=== PATIENT | female | born 1990 | race Caucasian/White ===

== ENCOUNTER 2020-08-07 05:10 | Inpatient (IN) | payer SELFPAY ==
[2016-08-06 10:22] VITALS: BMI 23.1
[2020-08-07] VITALS (16 sets, daily range): BP systolic 107–135; BP diastolic 58–90; PULSE 75–107; RESP 14–18; TEMP 36.1–36.8; O2SAT 95–100; BMI 23.4
--- NOTE | 2020-08-07 | PLAC_PTH ---
PATIENT: CORTNEY FOREMAN LOC: [facility] U#:[id number] AGE/SX: 30/F ROOM: WP006 RE08/07/[address]: Dr. Abena Deras DO : 1990 BED: 1 DIS: 08/08/2020 SPEC #: [id number] RECD: 08/07/20 14:44 STATUS: TANYA RELexi #: [id number] SATHYA: 08/07/20 00:[address]: Abena Deras DEPT: SURGICAL PATHOLOGY RECD BY: Puneet Mariscal ENTERED: 08/08/20 12:27 SP TYPE: PLACENTA OTHR DR: Dominique Chaudhry PA-C Tissues: Placenta, NOS Procedures: Surgery Specimen Level V HEADER OPERATION: Repeat section PRE-OP DIAGNOSIS: Labor TISSUE SUBMITTED: Placenta MICROSCOPIC DIAGNOSIS [place] placenta (402 gm): Umbilical cord - trivascular with no inflammation. Placental membranes - no pathologic change. Placental disc - John Donaldo change and mild intravillous congestion. AM:jenifer 08/09/2020 MICROSCOPIC DESCRIPTION Slides are reviewed. GROSS DESCRIPTION SPECIMEN: PLACENTA / CLINICAL INFORMATION: A. Weight: 1.915 kg B. Gestational Age: 37 weeks C. Sex: Female PLACENTAL WEIGHT (POST FIXATION): 402 gm PLACENTAL DIMENSIONS: 16 x 13 x 3 cm PLACENTAL SHAPE: Usual ovoid PLACENTAL WEIGHT FOR GESTATIONAL AGE: Within 10-99th percentile MEMBRANES - Present A. Insertion: Marginal B. Site of rupture from edge: 3 cm from edge of placental disc C. Color of membrane: Bearden-santana D. Abnormalities: None UMBILICAL CORD - Present A. Color: Bearden-santana B. Insertion: Eccentric C. Length: 15 cm D. Diameter: 1.2 cm E. Number of vessels: Three F. Abnormalities: None PLACENTAL DISC - Present A. Color of surface: Bearden-santana B. surface abnormalities: None C. Maternal cotyledons: Intact with minimal tears D. Attached retro placental clot: No clot E. Cut surface: Dark red and spongy F. Lesions: None G. Separate clot: 4 x 4 x 1 cm SECTIONS SUBMITTED: 1. Umbilical cord ( end notched) 2. Umbilical cord, placental end 3. Membrane roll 4. Placental disc, and maternal surfaces 5. Placental disc, and maternal surfaces 6. Placental disc, and maternal surfaces AM:jenifer 08/08/20 TC:5 CPT: 09255
[2020-08-07] MEDS: Lactated Ringers 1,000 ML 999 ML IV (05:40)
[2020-08-07 06:10] LABS: Absolute Lymphocyte Count 1.17 X10^3/uL (0.83-4.51); Absolute Neutrophil Count 5.6 X10^3/uL (2.0-7.7); Basophil# 0.02 X10^3/uL; Basophil% 0.3 % (0-1); Eosinophil# 0.06 X10^3/uL; Eosinophils% 0.8 % (0-5); Hematocrit 38.3 % (37-47); Lymphocyte # 1.17 X10^3/ul (4.0); Mean Corp Hgb Conc 33.9 g/dL (32-36); Mean Corpuscular Hgb 30.6 pg (27.0-32.0); Mean Corpuscular Volume 90.1 fL (81-99); Mean Platelet Vol. 11.5 fl (6.2-12.0); Monocyte# 0.44 X10^3/uL; NRBC Flagged by Analyzer 0 % (0-5); Neutrophil % 76.5 % (47-70); Platelet Count 131 K/mm3 (150-450); RBC Distribution Width CV 12.9 % (11.6-14.6); RBC Distribution Width SD 42.3 fl (35.1-43.9); Red Blood Count 4.25 M/mm3 (4.2-5.4); White Blood Count 7.3 K/mm3 (4.4-11.0)
[2020-08-07] MEDS: Acetaminophen 500 MG Tablet 1000 MG PO ×4 (06:26→23:59)
[2020-08-07 06:31] LABS: Bedside Glucose 106 mg/dL (70-110)
--- NOTE | 2020-08-07 07:17 | PCM.HP.OB ---
- Problem List (1) 37 weeks gestation of Status: Acute (2) History of section Status: Acute (3) IUGR (intrauterine growth restriction) Status: Acute (4) Gestational diabetes Status: Acute History Date of Admission: 08/07/20 Final ROSARIO: 08/22/20 Gestational age: 37 Weeks and 6 Days History of this : This is a 30 year-old, G 5, P 3, at 37 weeks gestational age admitted for a scheduled section. [facility] recommended delivery due to IUGR and poor interval growth. Medical History: Medical History (Last Updated 08/07/20 @ 07:[address] Abena Deras, DO) History of seizure Z87.898 Allergies No Known Allergies Allergy (Verified 08/06/16 10:30) Home Medications: Home Medications Vits [Prenatabs FA] 1 tablet PO DAILY 08/05/16 Naproxen [Naprosyn] 250 - 500 mg PO Q8H PRN PRN #30 tablet 08/08/16 Oxycodone HCl/Acetaminophen [Percocet 5-325] 2 tablet PO Q4H PRN PRN #30 tablet 08/08/16 Smoking Status: Never smoker Number of Fetus(es): 1 NST - FHR Rate Baby A FHR Category:: Category I History Past Pregnancies: Past Pregnancies Delivery Date Name GA/ Weeks Outcome Route Wt Sex Labor Length Anesthesia Delivery Location Provider FOB Labs: See [facility] record Expected Infant Delivery Method: Repeat Section Physical Exam Vitals: Vital Signs Temp Pulse Resp BP Pulse Ox 97.6 F L 107 H 16 135/90 H 100 08/07/20 05:40 08/07/20 05:40 08/07/20 05:40 08/07/20 05:40 08/07/20 05:40 Assessment/Plan All Active Problems 37 weeks gestation of (Acute) History of section (Acute) IUGR (intrauterine growth restriction) (Acute) Gestational diabetes (Acute) This is a 30 year-old, G 5, P 3, at 37 weeks gestational age admitted for a scheduled repeat section. - Routine pre op care - Delivery recommended by [facility] - Covid test ordered but not completed - Consent signed. Discussed r/b/a to section
[2020-08-07] MEDS: Sodium Citrate/Citric Acid 30 ML UDC PO (07:18)
[2020-08-07] MEDS: Lactated Ringers 1,000 ML 150 ML IV (07:18)
[2020-08-07] MEDS: Cefazolin 2 GM in 0.9% Normal Saline 100 ML IV (07:24)
--- NOTE | 2020-08-07 09:09 | OP.PCM_ITS ---
Problem List (1) 37 weeks gestation of Status: Acute (2) History of section Status: Acute (3) IUGR (intrauterine growth restriction) Status: Acute (4) Gestational diabetes Status: Acute Report of Operation Date of Procedure: 08/07/20 Pre-Operative Diagnosis: 37 week gestation, IUGR with poor interval growth, A1GDM, history prior sections Post-Operative Diagnosis: As above Surgery/Procedure Performed:: RLTCS via pfannenstiel incision Description of Surgical Findings:: Normal appearing uterus, bilateral tubes, bilateral ovaries. No uterine window noted, but the lower uterine segment was noted to be generally thin. Moderate adhesive disease. Dense fascia and the fascia was significantly adhered to the rectus muscles. The rectus muscles were significantly adhered in the midline. No peritoneal adhesions to the uterus. Minimal bladder adhesions to the uterus. The uterus was free of adhesions and able to be exteriorized from the abdomen. director educational radio: Kalani Casey assisted with the surgery and delivery of the baby. Once the baby was delivered she left the OR. Type of Anesthesia:: Spinal Special Medications: None Specimen's removed: Placenta Drains: Hernandez Estimated Blood Loss (mL): 300 Fluids Replaced: See anesthesia record Description of Procedure: The patient was taken to the OR where spinal anesthesia was adequate. She was prepped and draped in dorsal position with a leftward tilt. A Pfannenstiel skin incision was made using the scalpel. The subcutaneous tissue was dense. The incision was carried down to the underlying layer of fascia. The fascia was incised in the midline and extended laterally using Rodriguez scissors. The fascia was dissected off the rectus muscles cephalad and caudad. The fascia was significantly adhered to the rectus, and the dissection was performed with sharp dissection. The rectus muscles were adhered in the midline. Using a hemostat and scissors, the rectus muscles were carefully in the midline. The peritoneum was entered sharply with good visualization of the bladder, and the incision was extended bluntly. There were minimal bladder adhesions. A bladder flap was created. The lower uterine segment was generally thin, but no window noted. A transverse incision was made along the lower uterine segment. Clear fluid was noted. The 's head was flexed and gently brought to the hysterotomy. The infant was delivered through the hysterotomy without any force or delay. The cord was clamped and cut after a slight delay, and the infant was handed off to the nursery staff. The placenta was removed and sent to pathology. The uterus was exteriorized. The uterus was cleared of all clot and debris. The hysterotomy was closed first with Vicryl in a running locked fashion. A second imbricating layer was performed with Vicryl. Several addition figure of eight stitches were placed for hemostasis. The uterus was placed back into the abdomen. The hysterotomy and bladder flap was generally oozy. Hemostasis was noted with Bovie, Hari, and pressure. Started to close the peritoneum with Vicryl, but the peritoneum and pre-peritoneal fat continued to bleed. The suture was removed and the peritoneum was not closed. Several figure of eight stitches were placed on the peritoneum and the Bovie was used for hemostasis. The fascia was closed with Vicryl. The subcutaneous space was made hemostatic with Bovie and reapproximated with vicryl. The skin was closed in a subcuticular fashion. Steri strips and a dressing were placed. Instrument, sponge and needle counts were correct and the patient was taken to the recovery room is good condition. Grafts/Implants Used: None - Complications None - Admit VTE Documentation VTE Present on Admission: No VTE Mechan Device Prophylaxis: SCD's VTE Pharm Prophylaxis ordered?: Yes Delivery Classification: Scheduled Amniotic Fluid Description: Clear Placenta Disposition: [facility] Drain: Hernandez to straight drain Cord Entanglement: None Infant Gender: Female Delayed cord clamping: Yes Antibiotic Given: Ancef 2 grams IV x1 Pt instructed on risks of surgery: Bleeding, Infection, Need for Future C- Sections, Injury to surrounding structure(s) including bowel and bladder
[2020-08-07] MEDS: Oxytocin 30 units/NS 500 ml 30 UNITS/500 ML IV.SOLN 167 UNITS IV (09:10)
[2020-08-07 10:35] LABS: Bedside Glucose 81 mg/dL (70-110)
[2020-08-07 11:33] LABS: ALB/GLOB Ratio 0.8 RATIO (0.9-2.4); AST(SGOT) 17 U/L (15-37); Alanine Aminotransfer ALT/SGPT 23 U/L (13-56); Albumin, Serum 2.6 g/dL (3.2-5.0); Alkaline Phosphatase 115 U/L (45-117); Anion Gap 4 (5-15); BUN 7 mg/dL (7-18); BUN/Creat Ratio 12.7 RATIO (10-20); Calcium,Total 8.6 mg/dL (8.5-10.1); Chloride 109 mmol/L (98-107); Creatinine, Serum 0.55 mg/dL (0.55-1.02); EST Glomerular Filtration Rate 135 mL/min (>60); Est Glom Filt Rate - Afr Amer 164 mL/min (>60); Estimated Creatinine Clearance 132.14 ml/min; Globulin 3.4 g/dL (2.2-4.2); Glucose 89 mg/dL (74-106); Potassium 4.8 mmol/L (3.5-5.1); Sodium Level 139 mmol/L (136-145)
[2020-08-07] MEDS: Senna/Docusate Sodium 1 Tablet PO (12:14)
[2020-08-07] MEDS: 0.9% Saline Lock 10 ML Syringe IV ×3 (12:18→20:14)
[2020-08-07] MEDS: Ketorolac 30 MG/ML Syringe IV ×2 (13:55→20:13)
[2020-08-07] MEDS: Enoxaparin 40 MG/0.4 ML Syringe SC (20:13)
[2020-08-08] MEDS: 0.9% Saline Lock 10 ML Syringe IV ×2 (02:01→07:54)
[2020-08-08] MEDS: Ketorolac 30 MG/ML Syringe IV ×2 (02:01→07:53)
[2020-08-08 05:02] VITALS: BP 123/78; PULSE 87; RESP 16; TEMP 36.6
[2020-08-08] MEDS: Acetaminophen 500 MG Tablet 1000 MG PO ×2 (06:31→12:20)
[2020-08-08 06:53] LABS: Hematocrit 34.5 % (37-47); Hemoglobin 11.7 g/dL (12.0-15.0); Mean Corp Hgb Conc 33.9 g/dL (32-36); Mean Corpuscular Hgb 30.9 pg (27.0-32.0); Mean Platelet Vol. 11.2 fl (6.2-12.0); Platelet Count 136 K/mm3 (150-450); RBC Distribution Width CV 13.2 % (11.6-14.6); RBC Distribution Width SD 43.1 fl (35.1-43.9); Red Blood Count 3.79 M/mm3 (4.2-5.4); White Blood Count 9.4 K/mm3 (4.4-11.0)
[2020-08-08 06:55] LABS: Bedside Glucose 73 mg/dL (70-110)
[2020-08-08 07:48] VITALS: BP 118/81; PULSE 89; RESP 18; TEMP 36.4; O2SAT 97
--- NOTE | 2020-08-08 08:36 | PN.OBGYN_ITS ---
Patient Problems: Active and Suspected Problems (Last Updated 08/07/20 @ 07:[address] Abena Deras, DO) 37 weeks gestation of (Acute) History of section (Acute) IUGR (intrauterine growth restriction) (Acute) Gestational diabetes (Acute) Subjective: Patient seen at bedside. Feeling good. Denies any CP, SOB, or dizziness. Ambulating, voiding and passing flatus without difficulty. Breast feeding infant. Desires discharge home today. - Physical Exam Vitals/I&O's: Vital Signs Temp Pulse Resp BP Pulse Ox 97.6 F L 89 18 118/81 H 97 08/08/20 07:48 08/08/20 07:48 08/08/20 07:48 08/08/20 07:48 08/08/20 07:48 Oxygen Delivery Method Room Air Weight: 140 lb 12.8 oz Body Mass Index (BMI) 23.4 Intake and Output for Last 24 Hours 08/06/20 08/07/20 08/08/20 23:59 23:59 23:59 Intake Total 1925 / 1925 Output Total 2300 / 2300 Balance -375 / -375 General: Alert, Oriented x3 Lungs: Normal air movement Cardiovascular: Regular rate Abdomen: Soft, Passing Flatus Extremities: No Calf Tenderness Skin: No rashes Neurological: Cranial nerves II-XII grossly intact Psych/Mental Status: Normal Affect Microbiology Past 72 Hours 08/07/20 05:45 Mucosa - Nose SARS-CoV-2 Antigen (Rapid) - Final Laboratory Results 08/07/20 10:00: Sodium 139, Potassium 4.8, Chloride 109 H, Carbon Dioxide 26.0, Anion Gap 4 L, BUN 7, Creatinine 0.55, Estim Creat Clear Calc 132.14, Est GFR (MDRD) Af Amer 164, Est GFR (MDRD) Non-Af 135, BUN/Creatinine Ratio 12.7, Glucose 89, Calcium 8.6, Total Bilirubin 0.40, AST 17, ALT 23, Alkaline Phosphatase 115, Total Protein 6.0 L, Albumin 2.6 L, Globulin 3.4, Albumin/Globulin Ratio 0.8 L 08/07/20 10:18: POC Glucose 81 08/08/20 06:40: WBC 9.4, RBC 3.79 L, Hgb 11.7 L, Hct 34.5 L, MCV 91.0, MCH 30.9, MCHC 33.9, RDW Std Deviation 43.1, RDW Coeff of Sallie 13.2, Plt Count 136 L, MPV 11.2 08/08/20 06:50: POC Glucose 73 Current Medications Acetaminophen (Acetaminophen 500 Mg Tablet) 1,000 mg PO Q6 [facility] Last Admin: 08/08/20 06:31 Dose: 1,000 mg Documented by: Bisacodyl (Bisacodyl 10 Mg Suppository) 10 mg RECTAL UD PRN PRN Reason: If no BM Enoxaparin Sodium (Enoxaparin 40 Mg/0.4 Ml Syringe) 40 mg SC DAILY [facility] Last Admin: 08/07/20 20:13 Dose: 40 mg Documented by: Hydrocortisone (Hydrocortisone 2.5% Crm) 1 applic TOPICAL TID PRN PRN; Protocol PRN Reason: Discomfort Hydromorphone HCl (Hydromorphone 1 Mg/Ml Syringe) 0.5 - 1.5 mg IV Q3H PRN PRN PRN Reason: Pain Score 4-10 Stop: 08/08/20 09:22 Ibuprofen (Ibuprofen 600 Mg Tablet) 600 mg PO Q6H [facility] Methylergonovine Maleate (Methylergonovine 0.2 Mg/Ml Ampul) 0.2 mg IM X1 PRN PRN Reason: Uterine Atony Ondansetron HCl (Ondansetron 4 Mg/2 Ml Vial) 4 mg IV Q4H PRN PRN PRN Reason: Nausea Oxycodone HCl (Oxycodone 5 Mg Tablet) 5 - 10 mg PO Q4H PRN PRN PRN Reason: Pain Score 4-10 Prochlorperazine Edisylate (Prochlorperazine 10 Mg/2 Ml Vial) 10 mg IV Q6H PRN PRN PRN Reason: NAUSEA Senna/Docusate Sodium (Senna/Docusate Sodium 1 Tablet) 0 tablet PO DAILY [facility] Last Admin: 08/07/20 12:14 Dose: 2 tablet Documented by: Simethicone (Simethicone 80 Mg Tablet) 80 mg PO PCHS PRN PRN Reason: Indigestion/stomach pain Sodium Chloride (0.9% Saline Lock 10 Ml Syringe) 5 - 15 ml IV UD PRN PRN Reason: SALINE FLUSH Last Admin: 08/08/20 07:54 Dose: 10 ml Documented by: Medical Necessity - Tobacco Use Smoking Status: Never smoker Assessment/Plan All Active Problems (Last Updated 08/07/20 @ 07:[address] Abena Deras, DO) 37 weeks gestation of (Acute) History of section (Acute) IUGR (intrauterine growth restriction) (Acute) Gestational diabetes (Acute) POD #1 Repeat C/S Pain controlled with oral medications Breast feeding support Discharge home with follow up in office
--- NOTE | 2020-08-08 08:43 | DCINST_ITS ---
May resume sexual activity in: 6-8 weeks Weight Bearing Status: Weight bearing as tolerated Additional Instructions: If you experience any of the following, contact your healthcare provider. * Bleeding that soaks a pad every hour for 2 hours * Fever 100.4 or higher * Unrelieved incision or abdominal pain * Swelling, redness, discharge or bleeding from your incision or episiotomy site * Your incision begins to separate * Problems urinating (including inability to urinate or burning while urinating). * Visual changes * Severe headache * Flu-like symptoms * Pain or redness in one of both of your breasts * Pain, warmth, tenderness or swelling in your legs, especially the calf area * Frequent nausea and vomiting * Symptoms of depression or anxiety If you experience any of the following, call 911 or go to the nearest Emergency Room. * Chest pain * Problems breathing * Seizure activity * Partial or complete paralysis of a body part, slurred speech, weakness or drooping of the face, or a sudden inability to walk or hold your balance Allergies/Adverse Reactions: Allergies No Known Allergies Allergy (Verified 08/06/16 10:30) Medications to take at Discharge Vits [Prenatabs FA] 1 tablet PO DAILY 08/05/16 Follow-Up: Call to make an appointment with your doctor for an incision check in 1-2 weeks. You will also need a 6 week post- follow up appointment. Test results from this visit will be discussed in further detail at your follow- up appointment, if applicable. Primary Care Physician: Dominique Chaudhry PA-C [Primary Care Provider] -
--- NOTE | 2020-08-08 08:43 | PCM.DCCSEC ---
May resume sexual activity in: 6-8 weeks Weight Bearing Status: Weight bearing as tolerated Additional Instructions: If you experience any of the following, contact your healthcare provider. Bleeding that soaks a pad every hour for 2 hours Fever 100.4 or higher Unrelieved incision or abdominal pain Swelling, redness, discharge or bleeding from your incision or episiotomy site Your incision begins to separate Problems urinating (including inability to urinate or burning while urinating). Visual changes Severe headache Flu-like symptoms Pain or redness in one of both of your breasts Pain, warmth, tenderness or swelling in your legs, especially the calf area Frequent nausea and vomiting Symptoms of depression or anxiety If you experience any of the following, call 911 or go to the nearest Emergency Room. Chest pain Problems breathing Seizure activity Partial or complete paralysis of a body part, slurred speech, weakness or drooping of the face, or a sudden inability to walk or hold your balance Allergies/Adverse Reactions: Allergies No Known Allergies Allergy (Verified 08/06/16 10:30) Medications to take at Discharge Vits [Prenatabs FA] 1 tablet PO DAILY 08/05/16 Follow-Up: Call to make an appointment with your doctor for an incision check in 1-2 weeks. You will also need a 6 week post- follow up appointment. Test results from this visit will be discussed in further detail at your follow-up appointment, if applicable. Primary Care Physician: Dominique Chaudhry PA-C [Primary Care Provider] -
--- NOTE | 2020-08-08 08:48 | PCM.DC.SUM ---
Discharge Date and Diagnosis - Problem List Patient Problems: Active and Suspected Problems (Last Updated 08/07/20 @ 07:[address] Abena Deras DO) 37 weeks gestation of (Acute) History of section (Acute) IUGR (intrauterine growth restriction) (Acute) Gestational diabetes (Acute) Date of Admission: 08/07/20 Date of Discharge: 08/08/20 - Primary Discharge Diagnosis Acute Problems: Active Problems (Last Updated 08/07/20 @ 07:[address] Abena Deras DO) 37 weeks gestation of (Acute) History of section (Acute) IUGR (intrauterine growth restriction) (Acute) Gestational diabetes (Acute) Hospital Course and Treatment Summary of Care Provided: The patient is a 30 year old F with repeat section. Hospital course was uncomplicated. Patient Problems: Active and Suspected Problems (Last Updated 08/07/20 @ 07:[address] Abena Deras DO) 37 weeks gestation of (Acute) History of section (Acute) IUGR (intrauterine growth restriction) (Acute) Gestational diabetes (Acute) - Physical Exam Vitals/I&O's: Vital Signs Temp Pulse Resp BP Pulse Ox 97.6 F L 89 18 118/81 H 97 08/08/20 07:48 08/08/20 07:48 08/08/20 07:48 08/08/20 07:48 08/08/20 07:48 Oxygen Delivery Method Room Air Weight: 140 lb 12.8 oz Body Mass Index (BMI) 23.4 Intake and Output for Last 24 Hours 08/06/20 08/07/20 08/08/20 23:59 23:59 23:59 Intake Total 1925 / 1925 Output Total 2300 / 2300 Balance -375 / -375 Microbiology Past 72 Hours 08/07/20 05:45 Mucosa - Nose SARS-CoV-2 Antigen (Rapid) - Final Laboratory Results 08/07/20 10:00: Sodium 139, Potassium 4.8, Chloride 109 H, Carbon Dioxide 26.0, Anion Gap 4 L, BUN 7, Creatinine 0.55, Estim Creat Clear Calc 132.14, Est GFR (MDRD) Af Amer 164, Est GFR (MDRD) Non-Af 135, BUN/Creatinine Ratio 12.7, Glucose 89, Calcium 8.6, Total Bilirubin 0.40, AST 17, ALT 23, Alkaline Phosphatase 115, Total Protein 6.0 L, Albumin 2.6 L, Globulin 3.4, Albumin/Globulin Ratio 0.8 L 08/07/20 10:18: POC Glucose 81 08/08/20 06:40: WBC 9.4, RBC 3.79 L, Hgb 11.7 L, Hct 34.5 L, MCV 91.0, MCH 30.9, MCHC 33.9, RDW Std Deviation 43.1, RDW Coeff of Sallie 13.2, Plt Count 136 L, MPV 11.2 08/08/20 06:50: POC Glucose 73 Current Medications Acetaminophen (Acetaminophen 500 Mg Tablet) 1,000 mg PO Q6 [facility] Last Admin: 08/08/20 06:31 Dose: 1,000 mg Documented by: Bisacodyl (Bisacodyl 10 Mg Suppository) 10 mg RECTAL UD PRN PRN Reason: If no BM Enoxaparin Sodium (Enoxaparin 40 Mg/0.4 Ml Syringe) 40 mg SC DAILY [facility] Last Admin: 08/07/20 20:13 Dose: 40 mg Documented by: Hydrocortisone (Hydrocortisone 2.5% Crm) 1 applic TOPICAL TID PRN PRN; Protocol PRN Reason: Discomfort Hydromorphone HCl (Hydromorphone 1 Mg/Ml Syringe) 0.5 - 1.5 mg IV Q3H PRN PRN PRN Reason: Pain Score 4-10 Stop: 08/08/20 09:22 Ibuprofen (Ibuprofen 600 Mg Tablet) 600 mg PO Q6H [facility] Methylergonovine Maleate (Methylergonovine 0.2 Mg/Ml Ampul) 0.2 mg IM X1 PRN PRN Reason: Uterine Atony Ondansetron HCl (Ondansetron 4 Mg/2 Ml Vial) 4 mg IV Q4H PRN PRN PRN Reason: Nausea Oxycodone HCl (Oxycodone 5 Mg Tablet) 5 - 10 mg PO Q4H PRN PRN PRN Reason: Pain Score 4-10 Prochlorperazine Edisylate (Prochlorperazine 10 Mg/2 Ml Vial) 10 mg IV Q6H PRN PRN PRN Reason: NAUSEA Senna/Docusate Sodium (Senna/Docusate Sodium 1 Tablet) 0 tablet PO DAILY [facility] Last Admin: 08/07/20 12:14 Dose: 2 tablet Documented by: Simethicone (Simethicone 80 Mg Tablet) 80 mg PO PCHS PRN PRN Reason: Indigestion/stomach pain Sodium Chloride (0.9% Saline Lock 10 Ml Syringe) 5 - 15 ml IV UD PRN PRN Reason: SALINE FLUSH Last Admin: 08/08/20 07:54 Dose: 10 ml Documented by: May resume sexual activity in: 6-8 weeks Weight Bearing Status: Weight bearing as tolerated Home Medications: Medications to take at Discharge Vits [Prenatabs FA] 1 tablet PO DAILY 08/05/16 Primary Care Physician: Dominique Chaudhry PAVernC [Primary Care Provider] - Medical Necessity - Tobacco Use Smoking Status: Never smoker Meaningful Use Info Meaningful Use Diagnoses (Choose all that apply): None applicable
[2020-08-08] MEDS: Senna/Docusate Sodium 1 Tablet PO (11:02)
[2020-08-08] MEDS: Enoxaparin 40 MG/0.4 ML Syringe SC (11:02)
[2020-08-08 13:36] VITALS: BP 125/75; PULSE 91; RESP 16; TEMP 36.6; O2SAT 96
[2020-08-08] MEDS: Ibuprofen 600 MG Tablet PO (14:16)
[2020-08-09 14:50] LABS: Pathology Specimen OB SEE PATHOLOGY REPORT
== END 2020-08-08 14:50 | disposition home or self-care (01) | DRG 788 ==
PROVIDERS: Admitting Provider Obstetrics & Gynecology; PCP Family Medicine; Visit Provider Obstetrics & Gynecology
PROC: 10D00Z1 Extraction of Products of Conception, Low, Open Approach (ICD-10-PCS; CPT 59514; principal; 2020-08-07 07:15)
DX: O34.211 Maternal care for low transverse scar from previous cesarean delivery (principal); O36.5930 Maternal care for other known or suspected poor fetal growth, third trimester, not applicable or unspecified; O24.429 Gestational diabetes mellitus in childbirth, unspecified control; Z3A.37 37 weeks gestation of pregnancy; Z37.0 Single live birth
CPT/HCPCS: 80053; 82962; 85025; 85027; 86850; 86900; 86901; 87426; 88307; 99218; J7120; A4216; G0378; J2405